=== PATIENT | female | born 1980 | race Caucasian/White ===

== ENCOUNTER 2017-01-12 16:13 | Emergency (ER) | payer MEDICAID, OTHER ==
[~2017-01-12] VITALS: Ht 156.2 cm; Wt 84.1 kg
[2017-01-12] MEDS ORDERED: NS 1,000 ML IV ONE (17:15)
[2017-01-12] MEDS ORDERED: MORPHINE 4 MG/ML 1ML SYRINGE IV PRN (17:15)
[2017-01-12] MEDS ORDERED: ONDANSETRON 4MG/2ML VIAL (J2405) IV ONE (17:15)
[2017-01-12 17:26] LABS: BASO % 0.2 % (0.0-1.0); EOS # 0.1 10^3/uL (0.0-0.50); EOS % 0.9 % (0.0-3.0); IMMATURE GRANULOCYTE % 0.2 % (0-0); LYMPH # 3.2 10^3/uL (1.5-4.5); LYMPH % 25.5 % (24.0-44.0); MEAN CORPUSCULAR HEMOGLOBIN 30.3 pg (27.0-33.0); MEAN CORPUSCULAR HGB CONC 33.9 g/dl (32.0-36.5); MEAN CORPUSCULAR VOLUME 89.2 fl (80.0-96.0); MONO % 8.3 % (0.0-5.0); NEUTROPHILS # 8.2 10^3/uL (1.8-7.7); NEUTROPHILS % 64.9 % (36.0-66.0); PLATELET COUNT, AUTOMATED 430 10^3/uL (150-450); RED CELL DISTRIBUTION WIDTH 12.7 % (11.5-14.5); WHITE BLOOD COUNT 12.6 10^3/uL (4.0-10.0)
[2017-01-12 17:53] LABS: ALBUMIN 3.9 GM/DL (3.2-5.2); ALBUMIN/GLOBULIN RATIO 0.95 (1.00-1.93); ALKALINE PHOSPHATASE 108 U/L (45-117); ALT/SGPT 24 U/L (12-78); ANION GAP 6 MEQ/L (8-16); AST/SGOT 10 U/L (15-37); BILIRUBIN,DIRECT < 0.1 MG/DL (0.0-0.2); BILIRUBIN,TOTAL 0.3 MG/DL (0.2-1.0); BLOOD UREA NITROGEN 10 MG/DL (7-18); CALCIUM LEVEL 9.2 MG/DL (8.5-10.1); CARBON DIOXIDE LEVEL 27 MEQ/L (21-32); CHLORIDE LEVEL 104 MEQ/L (98-107); GLOMERULAR FILTRATION RATE > 60.0 (>60); GLUCOSE, FASTING 98 MG/DL (70-105); POTASSIUM SERUM 4.3 MEQ/L (3.5-5.1); SODIUM LEVEL 137 MEQ/L (136-145)
[2017-01-12] MEDS ORDERED: ISOVUE-370 76% 100ML VIAL (Q9967) As Ordered ONE (17:58)
--- NOTE | 2017-01-12 19:08 | REP ---
HISTORY: Right lower quadrant pain. COMPARISON: None. CONTRAST: 100 mL of Isovue-370. The lung bases are clear with the exception of minimal subsegmental atelectatic change in the left lower lobe and lingula. There are no pleural or pericardial effusions. The liver, gallbladder, spleen, pancreas, adrenal glands and kidneys are within normal limits. There does appear to be mild right renal scarring. The abdominal aorta and periaortic regions are within normal limits. There is no evidence of free fluid or free air. The bowel loops and their mesenteries are within normal limits. The appendix is well visualized and it is within normal limits. CT pelvis: There is no mass or adenopathy. There is no free fluid or air. The pelvic bowel loops and their mesenteries are within normal limits. Bone window technique throughout the examination shows the osseous structures to be within normal limits. IMPRESSION: CT findings are within normal limits. Signed by Jose Luis Mason DO 01/12/2017 07:30 P
[2017-01-12] MEDS ORDERED: KETOROLAC 30 MG/ML VIAL (J1885) IV ONE (19:15)
--- NOTE | 2017-01-12 20:00 | REPUSA ---
Clinical history: Pain. Findings: Real-time transabdominal ultrasound images of the pelvis were obtained. An anteverted uteru s is noted, measuring 8.8 x 3.6 x 5.3 cm. The uterus demonstrates normal echotexture and echogenicity . The endometrial stripe measures 5 mm and is within normal limits. The right ovary measures 3.7 x 2. 3 x 2.7 cm. There is a simple right ovarian cyst measuring 2.3 x 1.6 x 1.5 cm. The left ovary has bee n removed. Normal classroom flow is seen in the right ovary. There is no evidence of free fluid. The urinary bladder measures 10.5 x 6.1 x 8.7 cm and is unremarkable. Impression: Unremarkable ultrasound examination of the uterus. Simple right ovarian cyst. Left ovary has been surgically removed.
[2017-01-12] MEDS ORDERED: IBUP80TA PO (20:48)
[2017-01-12] MEDS ORDERED: ZOFR4TAB3 PO (20:48)
[2017-01-12 21:06] VITALS: BP 133/71
== END 2017-01-12 21:07 | disposition home or self-care (01) ==
LOC: M ED 16:13
DX: N83.201 Unspecified ovarian cyst, right side (principal); Z87.891 Personal history of nicotine dependence
CPT/HCPCS: 74177; 76856; 80048; 80076; 81001; 81025; 85025; 87086; 93976; 96374; 96375; 99284; J1885; J2405; Q9967

== ENCOUNTER 2017-04-26 12:35 | Emergency (ER) | payer OTHER, MEDICAID | END 2017-04-26 13:29 | disposition home or self-care (01) | LOC: M ED 12:35 | DX: J32.9 Chronic sinusitis, unspecified (principal); Z86.711 Personal history of pulmonary embolism; Z87.891 Personal history of nicotine dependence | CPT/HCPCS: 99282 ==

== ENCOUNTER 2017-06-14 10:02 | Emergency (ER) | payer OTHER ==
[2017-06-14] MEDS: NS 1,000 ML IV (11:00)
[2017-06-14] MEDS: METOCLOPRAMIDE INJ 10MG/2ML VIAL (J2765) IV (11:11)
[2017-06-14] MEDS: MORPHINE 4 MG/ML 1ML VIAL (J2270) IV (11:15)
[2017-06-14 11:26] LABS: KETONE, URINE AUTO RFX NEGATIVE (NEGATIVE); LEUKOCYTE ESTERASE UR AUTO RFX NEGATIVE (NEGATIVE); NITRITE, URINE AUTO RFX NEGATIVE (NEGATIVE); RBC, URINE AUTO RFX 1 /HPF (0-3); SPECIFIC GRAVITY UR AUTO RFX 1.008 (1.002-1.035); SQUAM EPITHELIAL CELL UR AURFX 1 /HPF (0-6); WBC, URINE AUTO RFX 1 /HPF (0-3)
[2017-06-14 11:35] LABS: BASO % 0.2 % (0.0-1.0); EOS # 0.1 10^3/uL (0.0-0.50); EOS % 0.9 % (0.0-3.0); HEMATOCRIT 41.7 % (36.0-47.0); HEMOGLOBIN 13.8 g/dl (12.0-16.0); IMMATURE GRANULOCYTE % 0.3 % (0-3.0); LYMPH # 2.1 10^3/uL (1.5-4.5); LYMPH % 22.3 % (24.0-44.0); MEAN CORPUSCULAR HEMOGLOBIN 30.5 pg (27.0-33.0); MEAN CORPUSCULAR HGB CONC 33.1 g/dl (32.0-36.5); MEAN CORPUSCULAR VOLUME 92.3 fl (80.0-96.0); MONO # 0.8 10^3/uL (0.0-0.8); MONO % 8.2 % (0.0-5.0); NEUTROPHILS # 6.3 10^3/uL (1.8-7.7); NEUTROPHILS % 68.1 % (36.0-66.0); PLATELET COUNT, AUTOMATED 353 10^3/uL (150-450); RED BLOOD COUNT 4.52 10^6/uL (4.00-5.40); RED CELL DISTRIBUTION WIDTH 12.7 % (11.5-14.5); WHITE BLOOD COUNT 9.3 10^3/uL (4.0-10.0)
[2017-06-14 11:59] LABS: ALBUMIN 3.9 GM/DL (3.2-5.2); ALBUMIN/GLOBULIN RATIO 1.18 (1.00-1.93); ALKALINE PHOSPHATASE 91 U/L (45-117); ALT/SGPT 24 U/L (12-78); ANION GAP 7 MEQ/L (8-16); AST/SGOT 17 U/L (7-37); BILIRUBIN,DIRECT 0.2 MG/DL (0.0-0.2); BILIRUBIN,TOTAL 0.6 MG/DL (0.2-1.0); BLOOD UREA NITROGEN 10 MG/DL (7-18); CARBON DIOXIDE LEVEL 27 MEQ/L (21-32); CHLORIDE LEVEL 105 MEQ/L (98-107); CREATININE FOR GFR 0.83 MG/DL (0.55-1.30); GLOMERULAR FILTRATION RATE > 60.0 (>60); GLUCOSE, FASTING 91 MG/DL (70-100); LIPASE 88 U/L (73-393); POTASSIUM SERUM 4.4 MEQ/L (3.5-5.1); SODIUM LEVEL 139 MEQ/L (136-145); TOTAL PROTEIN 7.2 GM/DL (6.4-8.2)
== END 2017-06-14 12:28 | disposition home or self-care (01) ==
LOC: M ED 10:02
DX: N83.209 Unspecified ovarian cyst, unspecified side (principal); E66.9 Obesity, unspecified; Z91.040 Latex allergy status; Z87.891 Personal history of nicotine dependence
CPT/HCPCS: J2270

== ENCOUNTER 2017-07-11 08:46 | Emergency (ER) | payer OTHER ==
[2017-07-11] MEDS: METOCLOPRAMIDE 10 MG TAB PO (09:26)
[2017-07-11] MEDS: NAPROXEN 250 MG TAB PO (09:26)
[2017-07-11] MEDS: BENZONATATE 100 MG CAP PO (09:27)
[2017-07-11] MEDS: dexameTHASONE 4 MG/ML 1ML VIAL (J1100) PO (09:27)
[2017-07-11 10:16] LABS: INFLUENZA A AMPLIFICATION NEGATIVE (NEGATIVE); INFLUENZA B AMPLIFICATION NEGATIVE (NEGATIVE)
== END 2017-07-11 10:45 | disposition home or self-care (01) ==
LOC: M ED 08:46
DX: J06.9 Acute upper respiratory infection, unspecified (principal); B34.9 Viral infection, unspecified; Z87.891 Personal history of nicotine dependence; Z91.040 Latex allergy status
CPT/HCPCS: J1100

== ENCOUNTER 2017-11-16 08:38 | Emergency (ER) | payer OTHER ==
[2017-11-16] MEDS: PERCOCET 5MG/325MG TAB PO (09:19)
== END 2017-11-16 09:30 | disposition home or self-care (01) ==
LOC: M ED 08:38
DX: S40.011A Contusion of right shoulder, initial encounter (principal); W01.0XXA Fall on same level from slipping, tripping and stumbling without subsequent striking against object, initial encounter; Y92.099 Unspecified place in other non-institutional residence as the place of occurrence of the external cause; Y93.89 Activity, other specified; Y99.9 Unspecified external cause status; Z87.891 Personal history of nicotine dependence; Z91.040 Latex allergy status
CPT/HCPCS: 73030

== ENCOUNTER 2018-04-06 17:15 | Emergency (ER) | payer MEDICAID, OTHER ==
[~2018-04-06] VITALS: Ht 154.9 cm; Wt 84.1 kg
[2018-04-06 17:15] VITALS: BP 132/72
[~2018-04-06 17:15] MED LIST: AMOX500C; AUGM875T28 PO; CHERSYP3 PO; CLAR5TAB7 PO; IBUP-1022 PO; IBUP80TA; IBUP80TA PO; NAPR-885 PO; PERC5TAB12 PO; SUDATAB18 PO; TESS100C PO; ULTR50TA8 PO; ZOFR4TAB14 PO
[2018-04-06 17:54] LABS: BASO % 0.4 % (0.0-1.0); EOS # 0.1 10^3/uL (0.0-0.50); EOS % 1.3 % (0.0-3.0); HEMATOCRIT 44.1 % (36.0-47.0); HEMOGLOBIN 14.6 g/dl (12.0-15.5); LYMPH # 2.9 10^3/uL (1.5-4.5); LYMPH % 26.5 % (24.0-44.0); MEAN CORPUSCULAR HEMOGLOBIN 30.7 pg (27.0-33.0); MEAN CORPUSCULAR HGB CONC 33.1 g/dl (32.0-36.5); MEAN CORPUSCULAR VOLUME 92.6 fl (80.0-96.0); MONO # 0.8 10^3/uL (0.0-0.8); MONO % 7.1 % (0.0-5.0); NEUTROPHILS % 64.2 % (36.0-66.0); PLATELET COUNT, AUTOMATED 403 10^3/uL (150-450); RED BLOOD COUNT 4.76 10^6/uL (4.00-5.40); WHITE BLOOD COUNT 10.9 10^3/uL (4.0-10.0)
[2018-04-06 18:16] LABS: ALBUMIN 3.9 GM/DL (3.2-5.2); ALT/SGPT 24 U/L (12-78); BILIRUBIN,DIRECT < 0.1 MG/DL (0.0-0.2); BILIRUBIN,TOTAL 0.3 MG/DL (0.2-1.0); BLOOD UREA NITROGEN 11 MG/DL (7-18); CARBON DIOXIDE LEVEL 24 MEQ/L (21-32); CHLORIDE LEVEL 105 MEQ/L (98-107); CREATININE FOR GFR 0.82 MG/DL (0.55-1.30); GLOMERULAR FILTRATION RATE > 60.0 (>60); GLUCOSE, FASTING 85 MG/DL (70-100); LIPASE 127 U/L (73-393); POTASSIUM SERUM 4.4 MEQ/L (3.5-5.1); SODIUM LEVEL 140 MEQ/L (136-145); TOTAL PROTEIN 7.8 GM/DL (6.4-8.2)
[2018-04-06] MEDS ORDERED: MORPHINE 4 MG/ML 1ML VIAL/SYRINGE (J2270) IV PRN (18:30)
[2018-04-06] MEDS ORDERED: NS 1,000 ML IV ONE (18:30)
[2018-04-06] MEDS ORDERED: ISOVUE-370 76% 100ML VIAL (Q9967) As Ordered ONE (18:31)
--- NOTE | 2018-04-06 20:19 | REPVR ---
EXAM: CT Abdomen and Pelvis With Contrast EXAM DATE/TIME: 04/06/2018 7:30 PM CLINICAL HISTORY: 37 years old, female; Pain; Abdominal pain; Localized; Right lower quadrant (rlq); Additional info: Rlq pain/perineal pain TECHNIQUE: Axial computed tomography images of the abdomen and pelvis with intravenous contrast. All CT scans at this facility use at least one of these dose optimization techniques: automated exposure control; mA and/or kV adjustment per patient size (includes targeted exams where dose is matched to clinical indication); or iterative reconstruction. Coronal and sagittal reformatted images were created and reviewed. CONTRAST: 100 ml of ISOVUE 370 administered intravenously. COMPARISON: CT ABD/PEL W/IV CONTRAST ONLY 01/12/2017 6:11 PM FINDINGS: Lower thorax: Clear appearing lung bases. Normal size heart. ABDOMEN: Liver: Normal appearing liver. Gallbladder and bile ducts: Partial contraction of the gallbladder. Pancreas: Normal pancreas. Spleen: Normal spleen. Adrenals: Normal adrenal glands. Kidneys and ureters: There is some scarring and irregularity the upper pole of the right kidney. No evidence of hydronephrosis. Stomach and bowel: The cecum is in the right pelvis. Normal-appearing small bowel. Normal-appearing appendix. PELVIS: Bladder: Normal urinary bladder. Reproductive: Normal sized uterus. 2 CM cyst right ovary. There are surgical clips along the right side of the uterus in 2 different locations. No surgical clips on the left. ABDOMEN and PELVIS: Intraperitoneal space: There is no evidence of pneumoperitoneum. Bones/joints: No evidence of bony abnormality. At L5-S1 there is posterior disc protrusion. Vasculature: There is opacification of the SMV. There is opacification of the SMA. There is opacification of the aorta which appears normal in size. Lymph nodes: There is no evidence of lymphadenopathy. IMPRESSION: 1. There are 2 sets of surgical clips along the right side of the uterus but none on the left. 2. Follicular cyst right ovary. Electronically signed by: Vic Sterling On 04/06/2018 20:18:36 PM
[2018-04-06] MEDS ORDERED: NORCOTAB PO (20:26)
== END 2018-04-06 20:42 | disposition home or self-care (01) ==
LOC: M ED 17:15
DX: N83.01 Follicular cyst of right ovary (principal); J45.909 Unspecified asthma, uncomplicated; Z86.711 Personal history of pulmonary embolism; Z87.891 Personal history of nicotine dependence; Z91.040 Latex allergy status
CPT/HCPCS: 74177; 80048; 80076; 81001; 83690; 85025; 96374; 99284; J2270; Q9967

== ENCOUNTER → 2018-06-14 | Outpatient (CLI) | payer OTHER ==
[~2018-06-14] MED LIST changes: +NORCOTAB PO
--- NOTE | 2018-06-15 14:22 | REPMRS ---
Patient History The patient states she had a clinical breast exam in May 2018. No known family history of cancer. Patient states she had 2 bx's on left 3D TOMOSYNTHESIS WAS PERFORMED. Digital Mammo Screening Bilat: June 14, 2018 - Exam #: [id number] Bilateral CC and MLO view(s) were taken. Technologist: Judith Lomeli, Technologist Prior study comparison: January 18, 2009, bilateral digital mammo screening bilat, performed at [facility]. FINDINGS: The breast tissue is heterogeneously dense. This may lower the sensitivity of mammography. There has been no change in the appearance of the mammogram from the prior studies. There is a moderate amount of residual fibroglandular tissue which is fairly symmetric. There is no interval development of dominant mass, areas of architectural distortion, or clustered microcalcification typical of malignancy. Assessment: BI-RADS/ACR category 1 mammogram. Negative Mammogram. Recommendation Routine screening mammogram in 1 year (for women over age 40). This mammogram was interpreted with the aid of an FDA-approved computer-aided dectection system. Electronically Signed By: Cas Sidhu MD 06/15/18 1523
== END ==
LOC: M RAD 15:31
PROVIDERS: ATTEND Advanced Practice Midwife
DX: Z12.31 Encounter for screening mammogram for malignant neoplasm of breast (principal)

== ENCOUNTER → 2018-06-15 | Outpatient (REF) | payer OTHER ==
[2018-06-17 14:21] LABS: HPV HYBRID CAPTURE II Negative (Negative)
== END ==
LOC: M LAB REF 14:35
PROVIDERS: ATTEND Advanced Practice Midwife
DX: Z12.4 Encounter for screening for malignant neoplasm of cervix (principal)

== ENCOUNTER → 2018-06-18 | Outpatient (CLI) | payer OTHER ==
--- NOTE | 2018-06-18 16:45 | REP ---
Clinical: Right-sided pelvic pain and cyst. Technique: Transabdominal pelvic ultrasound followed by transvaginal examination for better evaluation of the endometrium and adnexa with color Doppler evaluation of the ovary. Findings: Bladder is unremarkable and measures approximately 9.2 x 6.3 x 6.4 cm. Heterogeneous myomatous uterus measures 7.1 x 3.5 x 4.5 cm. Right posterior subserosal fibroid measures 1.3 x 1.0 x 1.0 cm. Right anterior subserosal fibroid measures 1.5 x 1.3 x 1.6 cm. Endometrial complex measures 3.8 mm thickness. Right ovary is normal in appearance and vascularity without torsion and without obvious cystic change. Right ovary measures 2.3 x 1.7 x 2.2 cm; RI 0.58. No pelvic fluid or adnexal mass lesion. Impression: 1. Two fibroids identified within the uterus measuring 1.3 cm and 1.6 cm maximal diameter. 2. Normal right ovary. Electronically Signed by Amandeep Muro MD 06/18/2018 04:36 P
== END ==
LOC: M RAD 14:50
PROVIDERS: ATTEND Advanced Practice Midwife
DX: D25.2 Subserosal leiomyoma of uterus (principal)

== ENCOUNTER 2018-06-20 17:12 | Emergency (ER) | payer OTHER ==
[~2018-06-20] VITALS: Ht 154.9 cm; Wt 95.5 kg
[~2018-06-20 17:12] MED LIST changes: +HYDR-3715 PO; -NORCOTAB PO
[2018-06-20] MEDS ORDERED: NS 1,000 ML IV ONE (17:45)
[2018-06-20] MEDS ORDERED: KETOROLAC 30 MG/ML VIAL (J1885) IV ONE (17:45)
[2018-06-20 17:56] LABS: BASO % 0.4 % (0.0-1.0); EOS # 0.2 10^3/uL (0.0-0.50); EOS % 1.5 % (0.0-3.0); HEMATOCRIT 43.2 % (36.0-47.0); HEMOGLOBIN 14.6 g/dl (12.0-15.5); LYMPH # 3.1 10^3/uL (1.5-4.5); LYMPH % 27.8 % (24.0-44.0); MEAN CORPUSCULAR HEMOGLOBIN 30.7 pg (27.0-33.0); MEAN CORPUSCULAR HGB CONC 33.8 g/dl (32.0-36.5); MEAN CORPUSCULAR VOLUME 90.8 fl (80.0-96.0); MONO # 0.8 10^3/uL (0.0-0.8); MONO % 7.1 % (0.0-5.0); NEUTROPHILS % 62.9 % (36.0-66.0); PLATELET COUNT, AUTOMATED 420 10^3/uL (150-450); RED BLOOD COUNT 4.76 10^6/uL (4.00-5.40); WHITE BLOOD COUNT 11.1 10^3/uL (4.0-10.0)
[2018-06-20 18:20] LABS: BLOOD UREA NITROGEN 14 MG/DL (7-18); CALCIUM LEVEL 9.2 MG/DL (8.5-10.1); CARBON DIOXIDE LEVEL 26 MEQ/L (21-32); CHLORIDE LEVEL 104 MEQ/L (98-107); GLOMERULAR FILTRATION RATE > 60.0 (>58); GLUCOSE, FASTING 100 MG/DL (70-100); POTASSIUM SERUM 4.1 MEQ/L (3.5-5.1); SODIUM LEVEL 138 MEQ/L (136-145)
--- NOTE | 2018-06-20 18:53 | REPVR ---
EXAM: US Pelvis Complete, Transabdominal EXAM DATE/TIME: 06/20/2018 6:22 PM CLINICAL HISTORY: 38 years old, female; Pain; Pelvic pain; Prior surgery; Surgery date: 6+ months; Surgery type: Ablation, lt oopherectomy; Additional info: Rlq/groin pain, h/o ovarian cysts TECHNIQUE: Imaging protocol: Real-time transabdominal pelvic ultrasound with image documentation. Complete exam. COMPARISON: US PELVIC NON-OB COMPLETE 06/18/2018 3:35 PM FINDINGS: Uterus/cervix: The uterus measures 6.8 CM in length by 3.7 CM in AP dimension by 5.1 CM in transverse dimension. The endometrium measures approximately 6 mm in thickness and uniform echogenic. There are 2 small fibroids posterior aspect of the uterus measure approximately 1 CM and 1.5 CM each. Right adnexa: The right ovary measures 2.7 CM in length x 1.9 CM in AP dimension. A small cyst is noted of the right ovary. There is vascular flow the right ovary. The left ovary has previously been removed. Free fluid: There is no evidence of free fluid within the pelvis. Bladder: A small amount of urine in the urinary bladder. IMPRESSION: Small fibroids in the fundus of the uterus. If there is any concern regarding appendicitis a CT scan would be necessary. Electronically signed by: Vic Sterling On 06/20/2018 18:53:26 PM
[2018-06-20] MEDS ORDERED: MORPHINE 2 MG/ML 1ML SYRINGE (J2270) IV ONE (19:15)
[2018-06-20 19:18] LABS: URINE PREG TEST NEGATIVE (NEGATIVE)
[2018-06-20] MEDS ORDERED: ISOVUE-370 76% 100ML VIAL (Q9967) As Ordered ONE (19:21)
--- NOTE | 2018-06-20 19:41 | REP ---
Clinical: Acute right lower quadrant pain. Technique: Axial contrast enhanced images from the lung bases to the pubic symphysis using 100 ml Isovue 370 intravenous contrast material with coronal and sagittal re-formations. Comparison: 04/06/2018. Findings: Lung bases are clear. Visualized heart and pericardium normal. Liver, spleen, pancreas, gallbladder, bilateral adrenal glands and kidneys are essentially normal. The enteric system suggests moderate fecal stasis without obstruction or acute inflammatory process. Normal terminal ileum and appendix are identified in the right lower quadrant. Pelvis demonstrates normal bladder and age-appropriate uterus/adnexa. No ascites. No free air. No adenopathy. Musculoskeletal structures are intact without focal osseous abnormality. Impression: 1. No acute abdominopelvic pathology appreciated. No free fluid, adenopathy, or focal inflammatory stranding. 2. Normal right lower quadrant structures including cecum, terminal ileum and appendix. Electronically Signed by Amandeep Muro MD 06/20/2018 07:32 P
[2018-06-20 20:45] VITALS: BP 152/71
== END 2018-06-20 20:46 | disposition home or self-care (01) ==
LOC: M ED 17:12
DX: D25.9 Leiomyoma of uterus, unspecified (principal); J45.909 Unspecified asthma, uncomplicated; Z86.711 Personal history of pulmonary embolism; Z87.891 Personal history of nicotine dependence; Z91.040 Latex allergy status
CPT/HCPCS: 36415; 74177; 76830; 76856; 80048; 81001; 84703; 85025; 93976; 96374; 96375; 99284; J1885; J2270; Q9967